=== PATIENT | male | born 1985 | race African-American/Black ===

== ENCOUNTER 2017-09-07 13:43 | Emergency (ER) | payer OTHER ==
[~2017-09-07] VITALS: Ht 170.2 cm; Wt 73.0 kg
[2017-09-07 13:51] VITALS: Ht 170.2 cm; Wt 73.0 kg
[2017-09-07 14:21] LABS: HEMATOCRIT 45.6 % (42-52); HEMOGLOBIN 16.5 g/dL (14.0-18.0); MEAN CELL VOLUME 85.7 fL (80-100); MEAN CORPUSCULAR HGB CONC 36.2 g/dl (32-36); MEAN PLATELET VOLUME 9.6 fL (7.4-10.4); PLATELET COUNT 227 K/uL (130-400); RED CELL DISTRIBUTION WIDTH CV 13.2 % (11.5-14.5); RED CELL DISTRIBUTION WIDTH SD 41.5 fL (36.4-46.3); WHITE BLOOD COUNT 5.17 K/uL (4.8-10.8)
[2017-09-07 14:30] LABS: ALBUMIN 4.1 gm/dl (3.4-5.0); ALT/SGPT 26 U/L (12-78); AST/SGOT 15 U/L (15-37); BLOOD UREA NITROGEN 11 mg/dl (7-18); CALCIUM 9.1 mg/dl (8.5-10.1); CARBON DIOXIDE 25 mmol/L (21-32); CREATININE 0.91 mg/dl (0.60-1.40); GLUCOSE 92 mg/dl (70-99); LIPASE 100 U/L (73-393); POTASSIUM 3.8 mmol/L (3.5-5.1); SODIUM 140 mmol/L (136-145)
--- NOTE | 2017-09-07 14:33 | DIAGNOSTIC IMAGING REPORT ---
SINGLE VIEW CHEST CLINICAL HISTORY: Atypical chest pain. FINDINGS: An AP, portable, upright chest radiograph is obtained. No prior studies are available for comparison at the time of dictation. The examination is degraded by portable technique and apical lordotic positioning. The cardiomediastinal silhouette is unremarkable. The lungs and pleural spaces are clear. No pneumothorax is seen. The bony thorax is grossly intact. IMPRESSION: No active disease in the chest. Electronically signed by: Epi Lucio M.D. 09/07/2017 2:32 PM Dictated Date/Time: 09/07/2017 2:31 PM
[2017-09-07 14:41] LABS: ALKALINE PHOSPHATASE 38 U/L (45-117); CKMB < 0.5 ng/ml (0.5-3.6); TOTAL PROTEIN 7.9 gm/dl (6.4-8.2)
--- NOTE | 2017-09-07 15:43 | EMERGENCY ROOM VISIT NOTE ---
History First contact with patient: 13:49 Chief Complaint: CHEST PAIN Stated Complaint: SHARP CHST PAIN AND BURINING Nursing Triage Summary: pt reports chest pain X several days to 1 week .pt states I thought the pain was from stress but now I feel tingly warm feeling with some intermittent GODINEZ and tension in my hands . pt reports hx of anxiety and this feels like it somewhat. History of Present Illness The patient is a 32 year old male who presents to the Emergency Room with complaints of intermittent left-sided chest pain for the past week. The patient reports that when he gets these symptoms, he also gets some tingling of both hands. The patient has also had some recent neck stiffness as well, but reports that it usually hurts on the right side. The patient does report a prior history of anxiety and anxiety attacks. He thinks that his current symptoms are different than what he usually experiences with anxiety. The patient denies any risk factors for heart disease. He denies any strong family history of heart disease. He denies any history of lung disease. No known family history of coagulopathies. The patient describes it as an intermittent "stress tension in my chest". He denies any pain upon my evaluation. Review of Systems HEENT: Denies dizziness, visual problems, hearing loss, tinnitus. Denies difficulty swallowing or oral lesions. PULMONARY: Denies cough, shortness of breath, sputum production or hemoptysis. CARDIOVASCULAR: Denies recent palpitations, dyspnea on exertion, orthopnea or peripheral edema. GASTROINTESTINAL: Denies diarrhea, constipation, nausea, vomiting, or abdominal pain. GENITOURINARY: Denies dysuria, frequency, urgency or nocturia. NEUROLOGIC: Denies history of epilepsy, CVA, TIA or chronic headaches. MUSCULOSKELETAL: Denies history of joint tenderness/swelling. SKIN: Denies rashes or lesions. PSYCHIATRIC: History of anxiety. ENDOCRINE: Denies history of diabetes or thyroid disorders. Past Medical/Surgical History Medical Problems: (1) Bronchitis Surgical Problems: (1) No history of previous surgery Family History FH: cancer Social History Smoking Status: Never Smoker Alcohol Use: occasionally Marital Status: single Occupation Status: employed Current/Historical Medications No Active Prescriptions or Reported Meds Physical Exam Vital Signs Date Time Temp Pulse Resp B/P (MAP) Pulse Ox O2 Delivery O2 Flow Rate FiO2 09/07/17 14:02 79 09/07/17 13:51 36.5 84 18 134/82 97 Room Air Physical Exam CONSTITUTIONAL: Healthy and well nourished. Alert and oriented X 3 with positive affect. Patient does not appear in any acute distress. HEENT: Normocephalic, atraumatic. Pupils equal, round and reactive. No conjunctival injection or scleral icterus. No facial edema. NECK: Full active range of motion without discomfort. No JVD or carotid bruits. RESPIRATORY: Clear to auscultation bilaterally with no wheezing, crackles, rhonchi or stridor. CARDIOVASCULAR: Regular rate and rhythm with no murmurs, rubs or gallops. GASTROINTESTINAL: Bowel sounds present in all quadrants. Soft and nontender to palpation. MUSCULOSKELETAL: Full range of motion of all joints without discomfort. Patient has no worsening discomfort with range of motion of the left shoulder, and has no tenderness to palpation to the left anterior chest wall or costochondral joints. INTEGUMENTARY: No rash or other significant dermatologic conditions noted. HEMATOLOGIC: No ecchymosis or petechiae noted. NEUROLOGIC: No focal neurologic deficits noted. Medical Decision & Procedures ER Provider Diagnostic Interpretation: My interpretation of an ECG shows a normal sinus rhythm of [address] elevation or other conduction abnormalities. SINGLE VIEW CHEST CLINICAL HISTORY: Atypical chest pain. FINDINGS: An AP, portable, upright chest radiograph is obtained. No prior studies are available for comparison at the time of dictation. The examination is degraded by portable technique and apical lordotic positioning. The cardiomediastinal silhouette is unremarkable. The lungs and pleural spaces are clear. No pneumothorax is seen. The bony thorax is grossly intact. IMPRESSION: No active disease in the chest. Laboratory Results 09/07/17 13:55 Red Blood Count 5.32, Mean Corpuscular Volume 85.7, Mean Corpuscular Hemoglobin 31.0, Mean Corpuscular Hemoglobin Concent 36.2, Mean Platelet Volume 9.6 09/07/17 13:55 Test 09/07/17 13:55 White Blood Count 5.17 K/uL (4.8-10.8) Red Blood Count 5.32 M/uL (4.7-6.1) Hemoglobin 16.5 g/dL (14.0-18.0) Hematocrit 45.6 % (42-52) Mean Corpuscular Volume 85.7 fL (80-100) Mean Corpuscular Hemoglobin 31.0 pg (25-34) Mean Corpuscular Hemoglobin Concent 36.2 g/dl (32-36) Platelet Count 227 K/uL (130-400) Mean Platelet Volume 9.6 fL (7.4-10.4) RDW Standard Deviation 41.5 fL (36.4-46.3) RDW Coefficient of Variation 13.2 % (11.5-14.5) Neutrophils % (Manual) 34.5 % Lymphocytes % (Manual) 28.3 % Variant Lymphocytes % (manual) 25.7 % Monocytes % (Manual) 4.4 % Eosinophils % (Manual) 7.1 % Neutrophils # (Manual) 1.78 K/uL (1.4-6.5) Total Absolute Neutrophils 1.78 K/uL (1.4-6.5) Lymphocytes # (Manual) 1.46 K/uL (1.2-3.4) Absolute Variant Lymphocytes 1.33 K/uL Total Absolute Lymphocytes 2.79 K/uL (1.2-3.4) Monocytes # (Manual) 0.23 K/uL (0.11-0.59) Eosinophils # (Manual) 0.37 K/uL (0-0.5) Red Blood Cell Morphology Unremarkable D-Dimer 300 ug/L FEU (0-500) Anion Gap 9.0 mmol/L (3-11) Est Creatinine Clear Calc Drug Dose 111.0 ml/min Estimated GFR () 130.6 Estimated GFR (Non- 112.7 BUN/Creatinine Ratio 11.7 (10-20) Calcium Level 9.1 mg/dl (8.5-10.1) Total Bilirubin 0.6 mg/dl (0.2-1) Direct Bilirubin 0.2 mg/dl (0-0.2) Aspartate Amino Transf (AST/SGOT) 15 U/L (15-37) Alanine Aminotransferase (ALT/SGPT) 26 U/L (12-78) Alkaline Phosphatase 38 U/L (45-117) Total Creatine Kinase 93 U/L (39-308) Creatine Kinase MB < 0.5 ng/ml (0.5-3.6) Creatine Kinase MB Ratio (0-3.0) Troponin I < 0.015 ng/ml (0-0.045) Total Protein 7.9 gm/dl (6.4-8.2) Albumin 4.1 gm/dl (3.4-5.0) Lipase 100 U/L (73-393) Thyroid Stimulating Hormone (TSH) 1.120 uIu/ml (0.300-4.500) The above labs were reviewed and were grossly normal. D-dimer and troponin are normal. TSH is normal. ED Course Patient history and physical exam were performed. Nurse's notes were reviewed. Vital signs were reviewed and were normal. The patient denied any pain on my initial exam. ECG and portable chest x-ray were normal. Review of labs shows a normal d-dimer and troponin. Electrolytes were normal, and the patient is not anemic. No fever or leukocytosis. Upon reevaluation, the patient denied any discomfort. The case was further discussed with Dr. Quinonez, ED attending physician, who agrees with outpatient cardiology workup. The patient reports that he currently does not have a family doctor. The patient was provided contact information for Dr. Rosas (cardiology) and Dr. Ren ([facility]) for further follow-up. The patient was encouraged to take aspirin 325 mg daily, and avoid any strenuous activities for now until reevaluated. He was instructed to return to the emergency department for any progressively worsening pain, shortness of breath, nausea, diaphoresis or other concerning symptoms. The patient was happy with plan of care, and voiced understanding of all discharge instructions. Medical Decision Workup today is not suggestive of myocardial infarction, pneumothorax, pulmonary embolus, pneumonia or other acute intrathoracic etiologies. The patient does report a history of anxiety. He does have intermittent bilateral hand paresthesias which could indicate anxiety symptoms. At this point, I do not feel that inpatient cardiology consultation is needed. The patient was given instructions to return to the emergency department as needed for worsening symptoms. Medication Reconcilliation Current Medication List: was personally reviewed by me Blood Pressure Screening Patient's blood pressure: Normal blood pressure Impression Primary Impression: Left sided chest pain Departure Information Prescriptions No Active Prescriptions or Reported Meds Referrals No Doctor, Assigned (PCP) Patient Instructions My [facility]
[2017-09-07 15:45] VITALS: BP 131/77; PULSE 74; TEMP 36.5; O2SAT 97
== END 2017-09-07 15:47 | disposition home or self-care (01) ==
LOC: C.EDB 13:45 → C.EDA 15:47
DX: R07.9 Chest pain, unspecified (principal); F41.9 Anxiety disorder, unspecified; Z80.9 Family history of malignant neoplasm, unspecified